=== PATIENT | female | born 1950 | race Caucasian/White ===

== ENCOUNTER 2020-03-03 16:44 | Inpatient (IN) | payer MEDICARE ==
[~2020-03-03] VITALS: Ht 177.8 cm; Wt 84.0 kg
[~2020-03-03 16:44] MED LIST: HYDR-3240 PO; MELO7.5T31 PO
--- NOTE | 2020-03-03 17:03 | NUR ---
Pt is a stage 4 cancer patient who currently has developed a fever, body aches and chills at home. Pt reports she thought maybe was just a bad cold but the fever continues despite antipyretics. Pt reports she cannot feel better and spoke with pcp who recommended she come to the emergency room for evaluation. Pt has clear lungs and breathing unlabored but does get sob when ambulating. Pt connected to monitors and call light in reach.
--- NOTE | 2020-03-03 17:27 | NUR ---
Pt provided with pillow, piv placed.
[2020-03-03] MEDS ORDERED: SODIUM CHLORIDE FLUSH 10ML SYR IVF ONE (17:30)
[2020-03-03] MEDS ORDERED: MORPHINE SULFATE 4 MG/ML, 1ML IVPush PRN (17:30)
[2020-03-03] MEDS ORDERED: ONDANSETRON 2MG/ML, 2ML IVPush ONE (17:30)
[2020-03-03] MEDS ORDERED: ONDANSETRON 2MG/ML, 2ML ONE (17:45)
[2020-03-03] MEDS ORDERED: MORPHINE SULFATE 4 MG/ML, 1ML ONE (17:45)
[2020-03-03 18:03] LABS: ALANINE AMINOTRANSFERASE 37 U/L (12-78); ALBUMIN 3.8 g/dL (3.4-5.0); ANION GAP 9 mmol/L (5-15); CALCIUM 8.6 mg/dL (8.5-10.1); CHLORIDE 97 mmol/L (98-107); CREATININE 1.09 mg/dL (0.55-1.02)
[2020-03-03 18:06] LABS: ALKALINE PHOSPHATASE 84 U/L (45-117); BILIRUBIN,TOTAL 0.8 mg/dL (0.2-1.0); TOTAL PROTEIN 7.1 g/dL (6.4-8.2)
[2020-03-03] MEDS ORDERED: CEFTRIAXONE PMX 1GM/50ML 50 ML ONE (18:21)
[2020-03-03] MEDS ORDERED: CEFTRIAXONE PMX 1GM/50ML 50 ML IV ONE (18:30)
[2020-03-03] MEDS ORDERED: AZITHROMYCIN 500 MG in SODIUM CHLORIDE 0.9% 250 ML IV ONE (18:30)
--- NOTE | 2020-03-03 18:32 | NUR ---
Pt medicated per emar.
[2020-03-03 18:36] LABS: MEAN CORPUSCULAR HEMOGLOBIN 31.2 pg (27.0-34.8); MEAN CORPUSCULAR HGB CONC 33.9 g/dL (32.4-35.8); MEAN CORPUSCULAR VOLUME 91.9 fL (80-100); RED BLOOD COUNT 4.46 x10^6/uL (3.82-5.3); RED CELL DISTRIBUTION WIDTH 14.1 % (9.6-15.2)
[2020-03-03 18:41] LABS: MD YES; MEAN PLATELET VOLUME 9.9 fL (7.4-10.4); PLATELET COUNT 109 x10^3/uL (130-400)
[2020-03-03 18:45] LABS: BANDS%(MANUAL) 34 % (0-7); LYMPH#(MANUAL) 0.42 x10^3/uL (1-3.4); LYMPHS% (MANUAL) 9 % (22-44); METAMYELOCYTES# (MANUAL) 0.19 x10^3/uL (0-0); METAMYELOCYTES% (MANUAL) 4 % (0-1); MONOS#(MANUAL) 0.38 x10^3/uL (0.3-2.7); MONOS% (MANUAL) 8 % (2-9); SEG#(MANUAL) 2.12 x10^3/uL (1.8-6.8); SEGS% (MANUAL) 45 % (42-75)
[2020-03-03 18:46] LABS: <PLATELET ESTIMATE> DECREASED; <RBC MORPHOLOGY> NORMAL
[2020-03-03 18:47] LABS: LARGE PLATELETS 1+
[2020-03-03] MEDS ORDERED: SODIUM CHLORIDE 0.9% 1,000ML IVBOLUS ONE (19:00)
[2020-03-03] MEDS ORDERED: ACETAMINOPHEN 500 MG TABLET PO ONE (19:00)
[2020-03-03] MEDS ORDERED: ACETAMINOPHEN 500 MG TABLET ONE (19:14)
[2020-03-03] MEDS ORDERED: HYDROmorphone 2 MG/ML, 1ML ONE (20:25)
[2020-03-03] MEDS ORDERED: HYDROmorphone 2 MG/ML, 1ML IVPush PRN (20:30)
--- NOTE | 2020-03-03 20:30 | NUR ---
Pt placed on O2 as comfort and prevent hypoxia with IV Diludid administration.
[2020-03-03] MEDS ORDERED: SODIUM CHLORIDE FLUSH 10ML SYR IVF PRN (21:00)
--- NOTE | 2020-03-03 21:34 | NUR ---
Pt medicated per emar for pain.
--- NOTE | 2020-03-03 21:39 | NUR ---
Report to Kitty PAGAN
[2020-03-03 22:00] VITALS: BP 95/54
[2020-03-03] MEDS ORDERED: ACETAMINOPHEN 325 MG TABLET PO PRN (23:00)
[2020-03-03] MEDS ORDERED: IBUPROFEN 600 MG TABLET PO PRN (23:00)
[2020-03-03] MEDS: ONDANSETRON 2MG/ML, 2ML IVPush PRN (23:14)
[2020-03-03] MEDS: ENOXAPARIN 40 MG/0.4 ML SQ SCH (23:14)
[2020-03-03] MEDS: SODIUM CHLORIDE 0.9% 1,000 ML IV SCH (23:15)
[2020-03-03] MEDS ORDERED: OSIM80TA PO (23:36)
[2020-03-04] MEDS ORDERED: POTASSIUM CHLORIDE 20 MEQ TAB.ER.PRT PO ONE (00:30)
[2020-03-04 01:33] VITALS: BP 95/61
[2020-03-04 01:56] LABS: MICROSCOPIC INDICATED
[2020-03-04] MEDS: MORPHINE SULFATE 4 MG/ML, 1ML IVPush PRN ×2 (03:54→10:17)
[2020-03-04 06:45] LABS: BASOPHILS # (AUTO) 0.01 x10^3/uL (0-0.1); BASOPHILS % (AUTO) 0 % (0-1); EOSINOPHILS % (AUTO) 0 % (1-7); LYMPHOCYTES # (AUTO) 0.28 x10^3/uL (1-3.4); LYMPHOCYTES % (AUTO) 6 % (22-44); MD NO; MEAN CORPUSCULAR HEMOGLOBIN 30.7 pg (27.0-34.8); MEAN CORPUSCULAR HGB CONC 32.9 g/dL (32.4-35.8); MEAN CORPUSCULAR VOLUME 93.3 fL (80-100); MEAN PLATELET VOLUME 8.9 fL (7.4-10.4); MONOCYTES # (AUTO) 0.24 x10^3/uL (0.2-0.8); MONOCYTES % (AUTO) 5 % (2-9); NEUTROPHILS # (AUTO) 4.25 x10^3/uL (1.8-6.8); NEUTROPHILS % (AUTO) 89 % (42-75); PLATELET COUNT 109 x10^3/uL (130-400); RED BLOOD COUNT 4.36 x10^6/uL (3.82-5.3); RED CELL DISTRIBUTION WIDTH 14.2 % (9.6-15.2)
[2020-03-04 06:59] LABS: ANION GAP 8 mmol/L (5-15); CALCIUM 8.2 mg/dL (8.5-10.1); CHLORIDE 102 mmol/L (98-107)
[2020-03-04 07:01] LABS: CREATININE 0.92 mg/dL (0.55-1.02)
[2020-03-04 07:05] VITALS: BP 102/65
[2020-03-04] MEDS: SODIUM CHLORIDE 0.9% 1,000 ML IV SCH ×2 (10:05→18:16)
[2020-03-04 13:41] VITALS: BP 93/59
[2020-03-04] MEDS: HYDROmorphone 1 MG/ML, 1ML INJ IV PRN ×2 (16:53→22:12)
[2020-03-04] MEDS: CEFTRIAXONE PMX 1GM/50ML 50 ML IV SCH (18:16)
[2020-03-04 18:41] VITALS: BP 95/62
[2020-03-04] MEDS: AZITHROMYCIN 500 MG in SODIUM CHLORIDE 0.9% 250 ML IV SCH (19:03)
[2020-03-04] MEDS: ENOXAPARIN 40 MG/0.4 ML SQ SCH (22:13)
[2020-03-04] MEDS: ONDANSETRON 2MG/ML, 2ML IVPush PRN (22:20)
[2020-03-05 00:44] VITALS: BP 91/58
[2020-03-05 04:31] LABS: BASOPHILS # (AUTO) 0.01 x10^3/uL (0-0.1); BASOPHILS % (AUTO) 0 % (0-1); EOSINOPHILS % (AUTO) 0 % (1-7); LYMPHOCYTES # (AUTO) 0.48 x10^3/uL (1-3.4); LYMPHOCYTES % (AUTO) 10 % (22-44); MD NO; MEAN CORPUSCULAR HEMOGLOBIN 30.5 pg (27.0-34.8); MEAN CORPUSCULAR VOLUME 92.3 fL (80-100); MEAN PLATELET VOLUME 9.1 fL (7.4-10.4); MONOCYTES # (AUTO) 0.46 x10^3/uL (0.2-0.8); MONOCYTES % (AUTO) 9 % (2-9); NEUTROPHILS # (AUTO) 3.99 x10^3/uL (1.8-6.8); NEUTROPHILS % (AUTO) 81 % (42-75); PLATELET COUNT 102 x10^3/uL (130-400); RED BLOOD COUNT 3.75 x10^6/uL (3.82-5.3); RED CELL DISTRIBUTION WIDTH 14.4 % (9.6-15.2)
[2020-03-05 04:37] LABS: ANION GAP 9 mmol/L (5-15); CALCIUM 7.5 mg/dL (8.5-10.1); CHLORIDE 100 mmol/L (98-107)
[2020-03-05] MEDS: SODIUM CHLORIDE 0.9% 1,000 ML IV SCH (06:05)
[2020-03-05] MEDS: HYDROmorphone 1 MG/ML, 1ML INJ IV PRN ×4 (06:13→21:33)
[2020-03-05 07:58] VITALS: BP 103/69
[2020-03-05] MEDS ORDERED: MAGNESIUM SULFATE PMX 4GM/100M 100 ML IV ONE (08:30)
[2020-03-05 12:39] VITALS: BP 103/69
[2020-03-05] MEDS ORDERED: OMNIPAQUE 350 MG/ML, 100ML BOTTLE ONE (17:36)
[2020-03-05] MEDS: CEFTRIAXONE PMX 1GM/50ML 50 ML IV SCH (17:45)
[2020-03-05] MEDS: AZITHROMYCIN 500 MG in SODIUM CHLORIDE 0.9% 250 ML IV SCH (18:53)
[2020-03-05] MEDS ORDERED: HYDROmorphone 2 MG/ML, 1ML ONE ×2 (19:06→21:26)
[2020-03-05 19:53] VITALS: BP 109/73
[2020-03-05] MEDS ORDERED: ENOXAPARIN 40 MG/0.4 ML SQ SCH ×3 (21:00)
[2020-03-06] MEDS: HYDROmorphone 1 MG/ML, 1ML INJ IV PRN ×6 (00:30→23:21)
[2020-03-06] MEDS ORDERED: HYDROmorphone 2 MG/ML, 1ML ONE ×6 (00:33→23:15)
[2020-03-06 00:47] VITALS: BP 111/70
[2020-03-06] MEDS: ONDANSETRON 2MG/ML, 2ML IVPush PRN ×2 (04:26→23:27)
[2020-03-06 05:34] LABS: BASOPHILS # (AUTO) 0.01 x10^3/uL (0-0.1); BASOPHILS % (AUTO) 0 % (0-1); EOSINOPHILS # (AUTO) 0.01 x10^3/uL (0-0.4); EOSINOPHILS % (AUTO) 0 % (1-7); LYMPHOCYTES # (AUTO) 0.45 x10^3/uL (1-3.4); LYMPHOCYTES % (AUTO) 8 % (22-44); MD NO; MEAN CORPUSCULAR HEMOGLOBIN 30.5 pg (27.0-34.8); MEAN CORPUSCULAR VOLUME 92.4 fL (80-100); MEAN PLATELET VOLUME 9.7 fL (7.4-10.4); MONOCYTES % (AUTO) 11 % (2-9); NEUTROPHILS % (AUTO) 81 % (42-75); PLATELET COUNT 116 x10^3/uL (130-400); RED CELL DISTRIBUTION WIDTH 14.5 % (9.6-15.2)
[2020-03-06 05:45] LABS: ANION GAP 7 mmol/L (5-15); CALCIUM 7.7 mg/dL (8.5-10.1); CHLORIDE 99 mmol/L (98-107)
[2020-03-06 05:50] LABS: CREATININE 0.74 mg/dL (0.55-1.02); TROPONIN I < 0.015 ng/mL (0.000-0.045)
[2020-03-06 08:38] VITALS: BP 89/51
[2020-03-06 09:30] VITALS: BP 99/64
[2020-03-06] MEDS ORDERED: POTASSIUM CHLORIDE 20 MEQ TAB.ER.PRT PO ONE (09:30)
[2020-03-06] MEDS ORDERED: AMIODARONE 450 MG in DEXTROSE 5% 241 ML IV PRN (10:35)
[2020-03-06] MEDS ORDERED: AMIODARONE 150 MG in DEXTROSE 5% 97 ML IVPB ONE (10:35)
[2020-03-06] MEDS ORDERED: FILTER 0.22 MICRON IV PRN (11:00)
[2020-03-06] MEDS: ENOXAPARIN 80 MG/0.8 ML SQ SCH ×2 (11:23→23:21)
[2020-03-06] MEDS ORDERED: FUROSEMIDE 20 MG/2 ML ONE (11:42)
[2020-03-06] MEDS ORDERED: FUROSEMIDE 20 MG/2 ML IV ONE (12:00)
[2020-03-06] MEDS ORDERED: VANCOMYCIN PER PHARMACY MC PRN (12:00)
[2020-03-06] MEDS ORDERED: VANCOMYCIN PMX 1GM/200ML 200 ML IV ONE (12:00)
[2020-03-06] MEDS ORDERED: PHARMACOKINETIC CONSULTATION MC ONE (12:30)
[2020-03-06] MEDS ORDERED: PHARMACOKINETIC MONITORING MC PRN (12:30)
[2020-03-06] MEDS ORDERED: VANCOMYCIN 2,100 MG in SODIUM CHLORIDE 0.9% 500 ML IV ONE (12:30)
[2020-03-06] MEDS: CEFEPIME 2 GM in DEXTROSE 5% 100 ML IV SCH ×2 (13:07→20:13)
[2020-03-06 14:25] VITALS: BP 99/66
[2020-03-06 20:10] VITALS: BP 102/68
[2020-03-06 21:28] LABS: CLOSTRIDIUM DIFFICILE ANTIGEN NEGATIVE; CLOSTRIDIUM DIFFICILE TOXIN NEGATIVE (Negative)
[2020-03-07 01:16] VITALS: BP 96/63
[2020-03-07] MEDS ORDERED: HYDROmorphone 2 MG/ML, 1ML ONE ×3 (03:07→20:02)
[2020-03-07] MEDS: HYDROmorphone 1 MG/ML, 1ML INJ IV PRN ×5 (03:13→20:15)
[2020-03-07] MEDS: CEFEPIME 2 GM in DEXTROSE 5% 100 ML IV SCH ×3 (04:40→20:14)
[2020-03-07 05:25] LABS: MEAN CORPUSCULAR HEMOGLOBIN 30.8 pg (27.0-34.8); MEAN CORPUSCULAR HGB CONC 33.4 g/dL (32.4-35.8); MEAN CORPUSCULAR VOLUME 92.4 fL (80-100); MEAN PLATELET VOLUME 10.7 fL (7.4-10.4); PLATELET COUNT 147 x10^3/uL (130-400); RED BLOOD COUNT 3.39 x10^6/uL (3.82-5.3); RED CELL DISTRIBUTION WIDTH 14.3 % (9.6-15.2)
[2020-03-07 06:07] LABS: CHLORIDE 100 mmol/L (98-107)
[2020-03-07 06:16] VITALS: BP 96/62
[2020-03-07 06:19] LABS: MD YES
[2020-03-07 06:22] LABS: <PLATELET ESTIMATE> ADEQUATE; <RBC MORPHOLOGY> NORMAL; BAND#(MANUAL) 0.58 x10^3/uL; BANDS%(MANUAL) 10 % (0-7); LYMPH#(MANUAL) 0.52 x10^3/uL (1-3.4); LYMPHS% (MANUAL) 9 % (22-44); MONOS#(MANUAL) 0.58 x10^3/uL (0.3-2.7); MONOS% (MANUAL) 10 % (2-9); SEG#(MANUAL) 4.12 x10^3/uL (1.8-6.8); SEGS% (MANUAL) 71 % (42-75)
[2020-03-07 06:23] LABS: <PLT MORPHOLOGY> NORMAL PLT MORPH
[2020-03-07] MEDS: VANCOMYCIN 1,700 MG in SODIUM CHLORIDE 0.9% 250 ML IV SCH (06:30)
[2020-03-07 06:42] LABS: ANION GAP 10 mmol/L (5-15); CALCIUM 7.8 mg/dL (8.5-10.1); CREATININE 0.71 mg/dL (0.55-1.02)
[2020-03-07] MEDS ORDERED: POTASSIUM PHOSPHATE 44 MEQ in SODIUM CHLORIDE 0.9% 500 ML IV ONE (08:30)
[2020-03-07] MEDS ORDERED: POTASSIUM CHLORIDE 20 MEQ TAB.ER.PRT PO SCH (08:30)
[2020-03-07] MEDS ORDERED: FUROSEMIDE 20 MG/2 ML IV SCH (09:00)
[2020-03-07] MEDS: ENOXAPARIN 80 MG/0.8 ML SQ SCH ×2 (11:40→23:41)
[2020-03-07] MEDS: METOPROLOL SUCCINATE 25 MG TAB.ER.24H PO SCH ×2 (12:18→20:15)
[2020-03-07 12:20] VITALS: BP 98/64
[2020-03-07] MEDS ORDERED: FUROSEMIDE 40 MG/4 ML IV ONE (14:09)
[2020-03-07 15:35] VITALS: BP 99/69
[2020-03-07] MEDS: POTASSIUM CHLORIDE 20 MEQ TAB.ER.PRT PO SCH (15:40)
[2020-03-07 19:56] VITALS: BP 96/60
[2020-03-08 00:10] VITALS: BP 94/60
[2020-03-08] MEDS: VANCOMYCIN 1,700 MG in SODIUM CHLORIDE 0.9% 250 ML IV SCH ×2 (00:59→18:45)
[2020-03-08] MEDS ORDERED: HYDROmorphone 2 MG/ML, 1ML ONE ×2 (02:38→15:44)
[2020-03-08] MEDS: HYDROmorphone 1 MG/ML, 1ML INJ IV PRN ×5 (02:42→23:22)
[2020-03-08] MEDS: CEFEPIME 2 GM in DEXTROSE 5% 100 ML IV SCH ×3 (04:32→20:17)
[2020-03-08 05:37] LABS: ANION GAP 8 mmol/L (5-15); CALCIUM 8.1 mg/dL (8.5-10.1); CHLORIDE 102 mmol/L (98-107)
[2020-03-08 05:40] LABS: CREATININE 0.72 mg/dL (0.55-1.02)
[2020-03-08 05:57] LABS: MEAN CORPUSCULAR HEMOGLOBIN 30.3 pg (27.0-34.8); MEAN CORPUSCULAR HGB CONC 32.5 g/dL (32.4-35.8); MEAN CORPUSCULAR VOLUME 93.4 fL (80-100); MEAN PLATELET VOLUME 10.1 fL (7.4-10.4); PLATELET COUNT 201 x10^3/uL (130-400); RED BLOOD COUNT 3.53 x10^6/uL (3.82-5.3); RED CELL DISTRIBUTION WIDTH 14.9 % (9.6-15.2)
[2020-03-08 06:27] LABS: BASOPHILS # (AUTO) 0.01 x10^3/uL (0-0.1); BASOPHILS % (AUTO) 0 % (0-1); EOSINOPHILS # (AUTO) 0.06 x10^3/uL (0-0.4); EOSINOPHILS % (AUTO) 1 % (1-7); LYMPHOCYTES # (AUTO) 0.75 x10^3/uL (1-3.4); LYMPHOCYTES % (AUTO) 11 % (22-44); MD SCAN; MONOCYTES # (AUTO) 1.19 x10^3/uL (0.2-0.8); MONOCYTES % (AUTO) 18 % (2-9); NEUTROPHILS # (AUTO) 4.67 x10^3/uL (1.8-6.8); NEUTROPHILS % (AUTO) 70 % (42-75)
[2020-03-08 07:53] VITALS: BP 95/60
[2020-03-08] MEDS ORDERED: FUROSEMIDE 40 MG/4 ML IV SCH (09:00)
[2020-03-08 09:33] VITALS: BP 94/61
[2020-03-08] MEDS: POTASSIUM CHLORIDE 20 MEQ TAB.ER.PRT PO SCH ×2 (09:33→17:37)
[2020-03-08] MEDS: METOPROLOL SUCCINATE 25 MG TAB.ER.24H PO SCH ×2 (09:43→20:17)
[2020-03-08 10:33] VITALS: BP 95/60
[2020-03-08] MEDS: FUROSEMIDE 40 MG/4 ML IV SCH (10:33)
[2020-03-08] MEDS: ENOXAPARIN 80 MG/0.8 ML SQ SCH ×2 (10:34→22:16)
[2020-03-08 12:41] VITALS: BP 98/52
[2020-03-08] MEDS ORDERED: TIMOLOL OPHTH 0.5%, 5ML EACHEYE SCH (16:00)
[2020-03-08] MEDS ORDERED: predniSOLONE OPHTH SUSP 1%, 5ML LEFTEYE SCH (16:00)
[2020-03-08 18:31] VITALS: BP 104/68
[2020-03-08] MEDS ORDERED: METOPROLOL SUCCINATE 25 MG TAB.ER.24H PO SCH (21:00)
[2020-03-09 01:57] VITALS: BP 99/59
[2020-03-09] MEDS: HYDROmorphone 1 MG/ML, 1ML INJ IV PRN ×3 (02:41→11:16)
[2020-03-09] MEDS: CEFEPIME 2 GM in DEXTROSE 5% 100 ML IV SCH ×3 (04:26→20:34)
[2020-03-09 06:09] LABS: ANION GAP 7 mmol/L (5-15); CALCIUM 8.3 mg/dL (8.5-10.1); CHLORIDE 105 mmol/L (98-107)
[2020-03-09 06:11] LABS: MEAN CORPUSCULAR HEMOGLOBIN 30.3 pg (27.0-34.8); MEAN CORPUSCULAR HGB CONC 32.5 g/dL (32.4-35.8); MEAN CORPUSCULAR VOLUME 93.5 fL (80-100); MEAN PLATELET VOLUME 9.3 fL (7.4-10.4); PLATELET COUNT 256 x10^3/uL (130-400); RED BLOOD COUNT 3.64 x10^6/uL (3.82-5.3); RED CELL DISTRIBUTION WIDTH 14.9 % (9.6-15.2)
[2020-03-09 06:38] LABS: MD YES
[2020-03-09 06:41] LABS: EOS#(MANUAL) 0.17 x10^3/uL (0.0-0.4); EOS% (MANUAL) 3 % (1-7); MONOS#(MANUAL) 1.25 x10^3/uL (0.3-2.7); MONOS% (MANUAL) 22 % (2-9)
[2020-03-09 06:45] LABS: BANDS%(MANUAL) 8 % (0-7); LYMPH#(MANUAL) 1.03 x10^3/uL (1-3.4); LYMPHS% (MANUAL) 18 % (22-44)
[2020-03-09 06:46] LABS: BAND#(MANUAL) 0.46 x10^3/uL; SEG#(MANUAL) 2.79 x10^3/uL (1.8-6.8); SEGS% (MANUAL) 49 % (42-75)
[2020-03-09 06:47] LABS: <PLATELET ESTIMATE> ADEQUATE; <PLT MORPHOLOGY> NORMAL PLT MORPH; <RBC MORPHOLOGY> NORMAL
[2020-03-09 08:10] VITALS: BP 98/65
[2020-03-09] MEDS ORDERED: FUROSEMIDE 40 MG/4 ML IV SCH (09:00)
[2020-03-09] MEDS: FUROSEMIDE 40 MG/4 ML IV SCH (10:02)
[2020-03-09] MEDS: POTASSIUM CHLORIDE 20 MEQ TAB.ER.PRT PO SCH ×2 (10:02→18:44)
[2020-03-09] MEDS: METOPROLOL SUCCINATE 25 MG TAB.ER.24H PO SCH ×2 (10:09→20:35)
[2020-03-09] MEDS ORDERED: DOCUSATE 100 MG CAPSULE PO PRN (12:00)
[2020-03-09] MEDS ORDERED: BISACODYL 5 MG EC TABLET PO PRN (12:00)
[2020-03-09] MEDS ORDERED: VANCOMYCIN 2,000 MG in SODIUM CHLORIDE 0.9% 500 ML IV SCH (12:00)
[2020-03-09] MEDS: ENOXAPARIN 80 MG/0.8 ML SQ SCH ×2 (12:23→23:42)
[2020-03-09] MEDS: VANCOMYCIN 1,500 MG in SODIUM CHLORIDE 0.9% 250 ML IV SCH ×2 (12:35→23:42)
[2020-03-09 13:37] VITALS: BP 91/56
[2020-03-09] MEDS: OXYcodone/APAP 5/325MG TABLET PO PRN ×3 (14:01→23:41)
[2020-03-09 19:11] VITALS: BP 103/68
[2020-03-10 01:24] VITALS: BP 104/70
[2020-03-10] MEDS: HYDROmorphone 1 MG/ML, 1ML INJ IV PRN (02:23)
[2020-03-10] MEDS: CEFEPIME 2 GM in DEXTROSE 5% 100 ML IV SCH ×2 (03:48→14:42)
[2020-03-10] MEDS: OXYcodone/APAP 5/325MG TABLET PO PRN ×2 (05:20→12:39)
[2020-03-10 05:23] LABS: ANION GAP 6 mmol/L (5-15); CALCIUM 8.6 mg/dL (8.5-10.1); CHLORIDE 107 mmol/L (98-107); CREATININE 0.63 mg/dL (0.55-1.02); MEAN CORPUSCULAR HEMOGLOBIN 30.1 pg (27.0-34.8); MEAN CORPUSCULAR HGB CONC 32.2 g/dL (32.4-35.8); MEAN CORPUSCULAR VOLUME 93.3 fL (80-100); MEAN PLATELET VOLUME 8.7 fL (7.4-10.4); PLATELET COUNT 290 x10^3/uL (130-400); RED CELL DISTRIBUTION WIDTH 14.9 % (9.6-15.2)
[2020-03-10 05:55] LABS: MD YES
[2020-03-10 05:57] LABS: BAND#(MANUAL) 0.17 x10^3/uL; BANDS%(MANUAL) 3 % (0-7); EOS#(MANUAL) 0.28 x10^3/uL (0.0-0.4); EOS% (MANUAL) 5 % (1-7); LYMPH#(MANUAL) 0.94 x10^3/uL (1-3.4); LYMPHS% (MANUAL) 17 % (22-44); MONOS#(MANUAL) 1.21 x10^3/uL (0.3-2.7); MONOS% (MANUAL) 22 % (2-9); SEG#(MANUAL) 2.92 x10^3/uL (1.8-6.8); SEGS% (MANUAL) 53 % (42-75)
[2020-03-10 05:58] LABS: <PLATELET ESTIMATE> ADEQUATE; <PLT MORPHOLOGY> NORMAL PLT MORPH; <RBC MORPHOLOGY> NORMAL
[2020-03-10 09:05] VITALS: BP 95/64
[2020-03-10] MEDS: POTASSIUM CHLORIDE 20 MEQ TAB.ER.PRT PO SCH (09:32)
[2020-03-10] MEDS: FUROSEMIDE 40 MG/4 ML IV SCH (09:33)
[2020-03-10] MEDS: METOPROLOL SUCCINATE 25 MG TAB.ER.24H PO SCH (09:36)
[2020-03-10] MEDS: ENOXAPARIN 80 MG/0.8 ML SQ SCH (11:49)
[2020-03-10] MEDS: VANCOMYCIN 1,500 MG in SODIUM CHLORIDE 0.9% 250 ML IV SCH (11:49)
[2020-03-10] MEDS ORDERED: LEVOFLOXACIN 500 MG TABLET PO SCH (12:30)
[2020-03-10] MEDS ORDERED: METO25TA35 PO (12:39)
[2020-03-10] MEDS ORDERED: LEVO500T8 PO (12:39)
[2020-03-10] MEDS ORDERED: LINE600T12 PO (12:39)
== END 2020-03-10 15:50 | disposition home or self-care (01) | DRG 177 ==
LOC: ED 19:25 → EDIP 20:49 → 4EST 22:27 → 5SO 03-05 18:44 → DCLOUNGE 03-10 15:45
PROVIDERS: ADMIT Family Medicine; ATTEND Internal Medicine
DX: J15.6 Pneumonia due to other Gram-negative bacteria (principal); J96.01 Acute respiratory failure with hypoxia; J81.0 Acute pulmonary edema; C34.90 Malignant neoplasm of unspecified part of unspecified bronchus or lung; T45.1X5A Adverse effect of antineoplastic and immunosuppressive drugs, initial encounter; I48.91 Unspecified atrial fibrillation; D72.810 Lymphocytopenia; E86.0 Dehydration; E87.6 Hypokalemia; I48.0 Paroxysmal atrial fibrillation; B95.62 Methicillin resistant Staphylococcus aureus infection as the cause of diseases classified elsewhere; I70.0 Atherosclerosis of aorta; Z20.828 Contact with and (suspected) exposure to other viral communicable diseases; Z85.118 Personal history of other malignant neoplasm of bronchus and lung; Z85.820 Personal history of malignant melanoma of skin; Y92.89 Other specified places as the place of occurrence of the external cause; Z79.899 Other long term (current) drug therapy
CPT/HCPCS: 36415; 36600; 71045; 71275; 80048; 80053; 80202; 81001; 82533; 82803; 83605; 83735; 83880; 84100; 84145; 84443; 84484; 85025; 87040; 87086; 87324; 87635; 93005; 93306; 96365; 96368; 96375; 99285; G0378; J0456; J0696; J1170; J1650; J1940; J2405; J3370; J7060; Q9967; J0282; J2270; J3475; J7030; J7040; J7050